=== PATIENT | female | born 1960 | race Caucasian/White ===

== ENCOUNTER → 2017-02-13 | Emergency (ER) | payer SELFPAY ==
[~2017-02-13] MED LIST: CLINDAMYCIN HC300 MG PO; NORCO 5-325 TA1 EACH PO
== END | disposition home or self-care (01) ==
LOC: ED 16:46
DX: I88.9 Nonspecific lymphadenitis, unspecified (principal); L08.9 Local infection of the skin and subcutaneous tissue, unspecified; I10 Essential (primary) hypertension; F17.200 Nicotine dependence, unspecified, uncomplicated
CPT/HCPCS: 70491; 80053; 85025; 96361; 96365; 96375; 99284; J0696; J1170; J7030; Q9967